=== PATIENT | female | born 1950 | race African-American/Black ===

== ENCOUNTER 2021-10-22 10:36 | Emergency (ER) | payer MEDICARE, OTHER ==
[~2021-10-22] VITALS: Ht 165.1 cm; Wt 75.0 kg
[~2021-10-22 10:36] MED LIST: AMLO10TA4 PO; AZIT500T2 PO; BRIM.2 BOTHEYE; FLUT1DIS INH; FURO40TA5 PO; METF500T PO; MONT10TA32 PO; NIFE30TA8 PO; P20 PO; POTA8CAP20 PO; SIMV-46 PO; THE3 PO; THEO400T4 PO
[2021-10-22 10:43] VITALS: BP 183/80
[2021-10-22] MEDS ORDERED: ACETAMINOPHEN 325MG TABLET PO ONE (10:45)
[2021-10-22] MEDS ORDERED: IBUP-2030 MT (11:53)
== END 2021-10-22 12:30 | disposition home or self-care (01) ==
LOC: ER 10:36
DX: M11.261 Other chondrocalcinosis, right knee (principal); E11.9 Type 2 diabetes mellitus without complications; M19.90 Unspecified osteoarthritis, unspecified site; I11.0 Hypertensive heart disease with heart failure; I50.9 Heart failure, unspecified; Z87.81 Personal history of (healed) traumatic fracture; Z79.84 Long term (current) use of oral hypoglycemic drugs; Z88.6 Allergy status to analgesic agent; Z88.0 Allergy status to penicillin
CPT/HCPCS: 73560; 99283